=== PATIENT | female | born 2000 | race Two or more races ===

== ENCOUNTER 2022-12-18 21:16 | Emergency (ER) | payer SELFPAY ==
[~2022-12-18] VITALS: Ht 157.5 cm; Wt 58.2 kg
[2022-12-18 21:17] VITALS: BP 108/57
== END 2022-12-18 23:12 | disposition left against medical advice (07) ==
LOC: EMS 21:21
DX: Z53.21 Procedure and treatment not carried out due to patient leaving prior to being seen by health care provider (principal)
CPT/HCPCS: 99281; Z7502